=== PATIENT | male | born 1985 | race Caucasian/White ===

== ENCOUNTER 2017-05-19 19:15 | Observation (INO) | payer OTHER ==
[~2017-05-19] VITALS: Ht 182.9 cm; Wt 120.9 kg
[~2017-05-19 19:15] MED LIST: IBUPROFEN800 MG PO; NORCO 5-325 TA1 EACH PO; PERCOCET 7.5-31 EACH PO; VENTOLIN HFA18 GM INH
--- NOTE | 2017-05-19 23:30 | NUR ---
PT ARRIVED TO UNIT VIA STRETCHER FROM E.D. PT ALERT AND ORIENTED. INDEPENDENT WITH AMBULATION, STEADY ON FEET. HISTORY AND ADMISSION ASSESSMENTS COMPLETE. PT RATES EPIGASTRIC PAIN 7/10, DENIES ANY NEED FOR PAIN MEDICATION AT THIS TIME. PT DENIES ANY N/V AT THIS TIME. PT ON ROOM AIR. IV FLUIDS INITIATED PER MD ORDERS, IV SITE PATENT AND INTACT, FLUSHES WELL. AT BEDSIDE, GOING HOME FOR EVENING. EDUCATED ON VOIDING IN URINAL. EDUCATED SENIOR ECOLOGIST LIGHT, WITHIN REACH. EDUCATED ON NPO. PT DENIES ANY FURTHER NEEDS AT THIS TIME.
--- NOTE | 2017-05-20 03:30 | NUR ---
PT AWAKE PLAYING ON PHONE AND WATCHING TV. PT DENIES ANY NEED FOR PAIN MEDICATION. PT DENIES ANY N/V. IV FLUIDS INFUSING WITHOUT DIFFICULTY. CALL LIGHT WITHIN REACH. PT DENIES ANY FURTHER NEEDS AT THIS TIME.
--- NOTE | 2017-05-20 06:24 | NUR ---
CALLED DR YANEZ REGARDING LOW URINE OUTPUT AND LOW HR, NEW ORDERS RECEIVED FOR 1 LITER LR BOLUS.
--- NOTE | 2017-05-20 06:26 | NUR ---
PT HAD AN UNEVENTFUL NIGHT. DENIED ANY NEED FOR PAIN MEDICATION. DENIED ANY N/V. PT ON ROOM AIR. IV FLUIDS INFUSING WITHOUT DIFFICULTY. PT INDEPENDENT IN ROOM. LOW URINE OUTPUT, NOTIFIED, BOLUS GIVEN.
--- NOTE | 2017-05-20 07:42 | NUR ---
CALL TO IMAGING TO LET NUC MED KNOW THAT PATIENT HAS HIDA SCAN ORDERED.
--- NOTE | 2017-05-20 07:53 | NUR ---
MORNING ASSESSMENT DONE. PATIENT RESTING IN BED, DENIES PAIN OR NAUSEA AT THIS TIME. FAMILY IN ROOM WITH PATIENT. IVF CONTINUOUS. SCD'S ON BED.
--- NOTE | 2017-05-20 08:09 | NUR ---
PATIENT NOTIFIED THAT NUC MED HAS SCAN PLANNED FOR 4PM TODAY. PATIENT IS HOPING TO HAVE TEST EARLIER IN THE DAY. DR. YANEZ WILL BE NOTIFIED OF TIME.
[2017-05-20] MEDS ORDERED: ADVIL200 MG PO (08:59)
[2017-05-20] MEDS ORDERED: OMEPRAZOLE20 MG PO (09:09)
--- NOTE | 2017-05-20 09:10 | NUR ---
MED REC COMPLETE
--- NOTE | 2017-05-20 10:13 | NUR ---
PATIENT RESTING IN BED, DENIES PAIN OR NAUSEA, WOULD LIKE TO BE UNDISTURBED FOR A BIT TO SLEEP.
--- NOTE | 2017-05-20 11:54 | NUR ---
PT IN BED-ALERT AND ORIENTED. HE EXPRESSED MILD FRUSTRATION THAT HE IS IN PAIN AND STILL CAN'T PINPOINT THE PROBLEM. FRANNIE SCHEDULED FOR LATER TODAY. PT REQUESTED PRAYER. WILLL FOLLOW NEEDED
--- NOTE | 2017-05-20 13:49 | NUR ---
IVF CHANGED TO D5LR @ 85. PATIENT DENIES PAIN, RESTING IN BED. FAMILY IN ROOM WITH PATIENT.
--- NOTE | 2017-05-20 14:26 | NUR ---
PT REQUESTING PAIN MEDICATION FOR HEADACHE. CLARIFIED WITH PRIMARY NURSE THAT IT WAS OKAY TO GIVE TORADOL. MEDICATED PT WITH TORADOL
--- NOTE | 2017-05-20 16:10 | NUR ---
SPOKE WITH PATIENT IN ROOM. AND CHILDREN ALSO IN ROOM. PATIENT DENIES BARRIERS TO RETURNING HOME AT DISCHARGE. NO KNOWN NEEDS.
--- NOTE | 2017-05-20 16:13 | NUR ---
PATIENT SALINE LOCKED IN ANTICIPATION OF HIDA SCAN. PATIENT HAS VOIDED RECENTLY.
--- NOTE | 2017-05-20 16:58 | NUR ---
PATIENT HAS HAD UNEVENTFUL DAY, WAITING FOR 4PM HIDA SCAN. PATIENT HAS HAD ONE DOSE OF IV TORADOL TODAY FOR HEADACHE, OTHERWISE HAS DENIED PAIN. IVF IS D5LR @ 85. PATIENT IS AD MOHAN UP TO BATHROOM. FAMILY HAS BEEN ROOM THE ENTIRE DAY AND PATIENT HAS BEEN ABLE TO SLEEP.
--- NOTE | 2017-05-20 19:10 | NUR ---
RECEIVED REPORT FROM DAY SHIFT RN. PATIENT JUST ARRIVED BACK TO THE FLOOR FROM A HYDA SCAN. PATIENT RATES PAIN AT A 2/10. PATIENT IS ASKING ABOUT WHAT THE PLAN IS NOW. EDUCATED PATIENT THAT WE ARE WAITING FOR RESULTS OF SCAN AND THEN DR. YANEZ WILL PROVIDED ORDERS FROM THERE. PATIENT DENIES ANY NEEDS. FAMILY IN THE ROOM. CALL LIGHT IN REACH.
--- NOTE | 2017-05-20 20:07 | NUR ---
SPOKE WITH DR. YANEZ ABOUT RESULTS OF THE HYDA SCAN. DR. YANEZ WOULD LIKE THE TO OPERATE ON PATIENT IN THE AM. DR. YANEZ WOULD LIKE GALLBLADDER PACKET PROVIDED TO PATIENT, PATIENT ALLOWED CLEARS, AND NPO AT MIDNIGHT. WILL COMPLY WITH NEW ORDERS.
--- NOTE | 2017-05-20 20:57 | NUR ---
PATIENT ASSESMENT COMPLETED AND RECORDED. PATIENTS VITALS TAKEN AND RECORDED. PATIENTS EVENING MEDICATIONS GIVEN PER ORDER. PATIENT GIVEN GALLBLADDER HANDBOOK. ANSWERED ALL QUESTIONS. PATIENT EDUCATED THAT DR. YANEZ WOULD BE IN TOMMOROW TO TALK TO HIM. PATIENT IS NOW ON CLEARS AND GIVEN CHICKEN BROTH. PATIENT RATES PAIN AT A 3/10. PATIENT DENIES ANY NEEDS FOR PAIN MEDICATION. PATIENT DENIES ANY NAUSEA. PATIENT IS AAOX3. PATIENT IS INDEPENDENT IN THE ROOM. PATIENT WOULD NOT LIKE TO WEAR SCDS AT THIS TIME. SCDS ARE IN PLACE ON THE END OF THE BED FOR WHEN PATIENT IS READY TO PUT THEM ON. PATIENT DENIES ANY FURTHER NEEDS AT THIS TIME. PATIENTS FAMILY WILL BE STAYING WITH PATIENT. CALL LIGHT IN REACH.
--- NOTE | 2017-05-20 23:32 | NUR ---
PATIENT IS RESTING IN BED WITH EYES CLOSED, RR 17. PATIENTS FAMILY IS ASLEEP IN THE ROOM. CALL LIGHT IN REACH.
--- NOTE | 2017-05-21 01:03 | NUR ---
PATIENT IS RESTING IN BED WITH EYES CLOSED, RR 17. PATIENTS CALL LIGHT IS WITHIN REACH.
--- NOTE | 2017-05-21 02:25 | NUR ---
PATIENTS VITALS TAKEN AND RECORDED. PATIENT DENIES ANY PAIN OR NAUSEA. PATIENT DENIES ANY NEEDS AT THIS TIME. CALL LIGHT IN REACH.
--- NOTE | 2017-05-21 04:35 | NUR ---
PATIENT IS RESTING IN BED WITH EYES CLOSED, RR17. BREATHING IS EVEN AND UNLABORED. PATIENT IS POSITIONED ON HIS RIGHT SIDE. PATIENTS CALL LIGTH IS WITHIN REACH.
--- NOTE | 2017-05-21 05:26 | NUR ---
PATIENT RESTED WELL THROUGHOUT THE SHIFT. PATIENT DENIED THE NEED FOR ANY PAIN MEDICATION DURING THE SHIFT. PATIENT DENIED ANY NAUSEA. PATIENT HAS BEEN NPO SINCE MDINIGHT. PATIENT IS INDEPENDENT IN THE ROOM AND IS STEADY ON HER FEET. PATIENT HAS BEEN NPO SINCE MIDNIGHT. PATIENT REFUSED SCDS STATING "THEY MAKE ME TO HOT" PATIENT IS AAOX3 AND USES CALL LIGHT APPROPRIATELY. PATIENTS FAMILY REMAINS IN THE ROOM.
--- NOTE | 2017-05-21 05:47 | NUR ---
PATIENTS VITALS TAKEN AND RECORDED. PATIENTS INTAKE AND OUTPUT TAKEN AND RECORDED. PATIENT RATES PAIN AT A 2/10 AND DENIES THE NEED FOR PAIN MEDICATION. PATIENT DENIES ANY NAUSEA. PATIENT HAS BEEN NPO SINCE MIDNIGHT. PATIENT DENIES ANY FURTHER NEEDS. CALL LIGHT IS WITHIN REACH.
--- NOTE | 2017-05-21 07:35 | NUR ---
RECEIVED BEDSIDE REPORT FROM BRANDON HUI AT 0700. PT SLEEPING AT THIS TIME WITH FAMILY AT BEDSIDE. PLAN TO HAVE SURGERY TODAY. NPO NOW.
--- NOTE | 2017-05-21 09:49 | NUR ---
pt resting quietly in bed with at bedside. both watching television. no pain at this time.
--- NOTE | 2017-05-21 10:08 | NUR ---
PATIENT UP AMBULATING THE HALLWAY WITH HIS , SHOWER SET UP FOR THE PATIENT AT THIS TIME.
--- NOTE | 2017-05-21 10:16 | NUR ---
pt ambulated halls this morning for comfort. reported headache. toradol IV given.
--- NOTE | 2017-05-21 11:30 | NUR ---
PT RESTING IN BED, ALERT, ORIENTED AND SUPPORTED BY HIS . HE HAS A GOOD ATTITUDE, AND SEEMS VERY SUPPORTIVE. SEEMS PLAN IS TO DO LAP TONEY TOMORROW MORNING. HE IS HOPING TO BE DC'D TOMORROW AFTERNOON. HAD PRAYER WITH PT, WILL CONTINUE TO FOLLOW
--- NOTE | 2017-05-21 12:41 | NUR ---
pt off floor for CT. saline locked for procedure.
--- NOTE | 2017-05-21 13:05 | NUR ---
pt back from CT at 1300. IVF restarted. family at bedside.
--- NOTE | 2017-05-21 15:47 | NUR ---
05/21/17 1547 Sara Jackson 1543 PATIENT UNRESPONSIVE TO VERBAL OR TACTILE STIMULI. RESP EVEN AND UNLABORED, NC AT 6 LITERS, DECREASED TO 2 LITERS.
--- NOTE | 2017-05-21 16:26 | NUR ---
PT BACK IN ROOM 109. PT WIDE AWAKE. VSS. HUNGRY. WILL ORDER CLEAR LIQUID TRAY.
--- NOTE | 2017-05-21 17:46 | NUR ---
pt had CT scan of abd this morning. more or less benign-- small kidney stone seen. EGD this afternoon. no results yet. plan to have yamel tomorrow 729. need consent signed. Room air. D5LR @ 85 infusing into RAC. Redressed IV. Independent in room. Clear liquids now. NPO at midnight.
--- NOTE | 2017-05-21 19:15 | NUR ---
RECEIVED REPORT FROM DAY SHIFT RN. PATIENT IS RESTING IN BED WATCHING TV AND VISITING WITH FAMILY. PATIENT DENIES ANY PAIN OR NAUSEA AT THIS TIME. PATIENT DENIES ANY NEEDS. CALL LIGHT IN REACH.
--- NOTE | 2017-05-21 20:55 | NUR ---
PATIENT ASSESMENT COMPLETED. PATIENTS EVENING MEDICATIONS GIVEN PER ORDER. PATIENT RATES PAIN AT A 3/10 AND DENIES THE NEED FOR PAIN MEDICATION AT THIS TIME. PATIENT DOES COMPLAIN OF NAUSEA. SPOKE WITH DR YANEZ AND RECEIVED A VERBAL ORDER FOR NAUSEA MEDICATION. VERIFIED NEW ORDER USING THE READBACK METHOD. PATIENT IS REQUESTING NAUSEA MEDICATION ONCE AVAILABLE. PATIENT IS INDEOENDENT IN THE ROOM AND IS STEADY ON HIS FEET. PATIENTS FAMILY REMAINS AT THE BEDSIDE. PATIENT DENIES ANY FURTHER NEEDS AT THIS TIME. CALL LIGHT IN REACH.
--- NOTE | 2017-05-21 21:21 | NUR ---
PATIENT GIVEN PRN ZOFRAN PER ORDER. PATIENT DENIES ANY FURTHER NEEDS AT THIS TIME. CALL LIGHT IN REACH.
--- NOTE | 2017-05-21 21:51 | NUR ---
PATIENT AMBULATED IN HALLWAY X3 LAPS. PATIENT IS STEADY ON HIS FEET. PATIENT DENIES PAIN. PATIENT STATED "MY STOMACH IS FEELING BETTER AFTER THE NAUSEA MEDICATION". PATIENT IS NOW BACK IN ROOM VISSITING WITH FAMILY.
--- NOTE | 2017-05-21 23:31 | NUR ---
PATIENT IS RESTING IN BED WITH EYES CLSOED. BREATHING EVEN AND UNLBAORED. PATIENTS FAMILY IS ASLEEP IN THE COUCH. CALL LIGHT IN REACH.
--- NOTE | 2017-05-22 00:26 | NUR ---
PATIENTS URINAL EMPTIED PER REQUEST. PATIENT RATES PAIN AT A 1/10 AND DENIES THE NEED FOR PAIN MEDICATION. PATIENT DENIES ANY NAUSEA. CALL LIGHT IN REACH.
--- NOTE | 2017-05-22 02:24 | NUR ---
PATIENT IS RESTING IN BED WITH EYES CLOSED, RR17.
--- NOTE | 2017-05-22 04:28 | NUR ---
PATIENT CONTINUES TO REST IN BED ON HIS RIGHT SIDE. PATIENTS BREATHING IS EVEN AND UNLABORED, RR 17
--- NOTE | 2017-05-22 05:18 | NUR ---
PATIENT RESTED WELL THROUGHOUT THE SHIFT. PATIENT DENIE ANY PAIN. PATIENT RECEIVED X1 PRN NAUSEA MEDICATION. PATIENT HAD MULTIPLE LOOSE BMS. PATIENT HAS BEEN NPO SINCE MIDNIGHT. PATIENT IS INDEPENDENT IN THE ROOM AND IS STEADY ON HIS FEET. PATIENTS SURGERY PREP FOR THIS AM IS COMPLETED. PATIENT IS AAO X3. PATIENT USES CALL LIGHT APPROPRIATELY. PATIENT REFUSES SCDS.
--- NOTE | 2017-05-22 06:08 | NUR ---
PATIENT WIPE DOWN COMPLETED. LR WITH STRAIGHT TUBING IS HUNG. ALL PATIENTS QUESTIONS ANSWERED. PATIENT DENIES ANY PAIN OR NAUSEA. PATIENT DENIES ANY FURTHER NEEDS AT THIS TIME. CALL LIGHT IN REACH.
--- NOTE | 2017-05-22 06:38 | NUR ---
DAY SURGERY RN TO FLOOR. PATIENT TRANSFERRED TO STRETCHER ON IS OWN. PATIENT IS HEADED TRO DAY SURGERY. HAND OFF REPORT GIVEN TO DAY SURGERY RN. ALL QUESTIONS ANSWERED.
--- NOTE | 2017-05-22 07:12 | NUR ---
HANDOFF REPORT RECEIVED FROM BACK TENDER PAPER MACHINE RN. PT AT OR.
--- NOTE | 2017-05-22 09:07 | NUR ---
05/22/17 0907 PatriceDax spaulding SAT 100, O2 DECREASED TO 6L.
[2017-05-22] MEDS ORDERED: OXYCODON-ACETA1 EAC2 PO (09:18)
--- NOTE | 2017-05-22 09:45 | NUR ---
PT RECEIVED FROM PACU, BEDSIDE REPORT RECEIVED FROM RN. PT RESTING IN BED. PT RATING PAIN 6/10. PT LUNG SOUNDS CLEAR, ON ROOM AIR. PT BOWLT TONES ABSENT. LAP SITES X5, GAUZE TO UMBILICUS SITE, STERISTRIPS INPLACE. PT REQUESTING TO USE RESTROOM, ASSISTED. PT COMPLAINT OF NAUSEA, 4MG IV ZOFRAN GIVEN, 50 ML EMESIS. PT ASSISTED TO BED. PT ENCOURAGED TO REST, CLEAR LIQUIDS PROVIDED, DIRECTED TO SIP SLOWLY. PT DENIES OTHER NEEDS AT THIS TIME.
--- NOTE | 2017-05-22 11:00 | NUR ---
PT RESTIN IN BED. PT STATES NAUSEA IMPROVED. TOLERATING CLEAR LIQUID DIET. PT VOIDED. IV FLUIDS INFUSING. PT DENIES NEEDS AT THIS TIME.
--- NOTE | 2017-05-22 12:14 | NUR ---
PT REQUESTING PAIN MEDICATION. PT TOLERATING CLEAR LIQUIDS AND CRACKERS. PT GIVEN 2 TAB PERCOCET. PT DENIES NAUSEA AT THIS TIME. PT VOIDING. PT DENIES NEEDS.
--- NOTE | 2017-05-22 13:27 | NUR ---
PT CB ZIEGLER THIS MORNING. BACK IN . SEEMS THANKFUL IT IS OVER. AND DAUGHTERS IN , PT HOPES TO BE DC'D LATER TODAY. BOTH EXPRESSED APPRECIATION FOR CARE THEY HAVE RECEIVED FORM STAFF AND DR YANEZ. PT ASKED FOR PRAYER.
--- NOTE | 2017-05-23 10:32 | OR ---
[facility] [address], [place] [address] Signed DATE OF SERVICE: 05/22/2017 PREOPERATIVE DIAGNOSIS: Acute acalculous cholecystitis. POSTOPERATIVE DIAGNOSES: Acute acalculous cholecystitis. Profound cholesterolosis of mucosa of gallbladder with normal cholangiogram. PROCEDURES: Laparoscopic cholecystectomy with intraoperative cholangiogram. Surgeon directed fluoroscopy. SURGEON: Ed Yanez MD. ANESTHESIA: General endotracheal (Nalini Morocho CRNA) and local 20 mL of 0.25% Marcaine with epinephrine. INDICATION: This 31-year-old white man is a patient of CYRUS Bailey. He was admitted by me on May 19, 2017, with significant epigastric right upper abdominal pain as well as weight loss and episodic night sweats and worsening of these symptoms over the past few months. In July of 2016, he underwent colonoscopy and upper endoscopy by Dr. Driscoll in [place] for these symptoms. He was said to have peptic disease and diverticular changes of the colon. 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 He was admitted and considered to possibly have biliary disease and underwent a CCK-HIDA test and ultrasound both of which were normal with an ejection fraction on the CCK test of 75%. Since that time, he has been on omeprazole, but with no benefit whatsoever to his symptoms. His symptoms have progressed into his recent admission where he was noted to have significant weight loss of 20 pounds over the past month and a half as well as epigastric and right subcostal pain. He is unable to eat well at all due to his symptoms and on that basis weight loss was considered related to poor oral intake overall. An ultrasound performed in the emergency room on May 19 showed no sign of gallstones. A CCK-HIDA test was performed the following day showing an ejection fraction of 35% with marked reproduction of his symptoms. Mindful of other etiologies of his problem, a CT scan was performed , which was normal except for left nephrolithiasis (asymptomatic and Electronically Signed By: ED YANEZ MD 05/23/17 1032 PATIENT NAME: RICKY BEGUM OPERATIVE REPORT DATE OF : 81 PHYSICIAN: ED YANEZ MD REPORT #: [id number] REPORT IS CONFIDENTIAL AND NOT TO BE RELEASED WITHOUT AUTHORIZATION [facility] [address], [place] [address] Signed without hydroureter) as well as upper endoscopy by me, which showed no evidence of peptic disease, though, it did show a small mid esophageal polyp, which was excised. Given his constellation of symptoms, the recent CCK-HIDA test and so forth, I have recommended cholecystectomy as the remedy to what I believe to be chronic persistent and now acute acalculous cholecystitis. He and his understand the risks of bleeding, infection, bile d uct injury, need for open procedure, and other unforeseen complications related to operation, not the least of which may be no improvement of his symptoms overall. He understands this and wished to proceed. FINDINGS: The gallbladder was chronically inflamed. Cholesterolosis could be seen through transillumination of the gallbladder and once the gallbladder was excised, profound cholesterolosis of the gallbladder was noted. The cholangiogram was normal. The liver had fatty infiltration, but otherwise was norm al. There is no sign of ascites or carcinomatosis or other problems. PROCEDURE IN DETAIL: The patient was brought to the operating room, given a general endotracheal anesthetic. Preoperative antibiotic Ancef was given. Sequential compression device stockings were used and heparin subcutaneously administered. The abdomen was clipped and prepared with chlorhexidine solution and draped sterilely. Infraumbilical incision was made and using an open Jyothi cannula technique, pneumoperitoneum was achieved at level 1 4 mmHg of carbon dioxide gas. Intraabdominal inspection showed the gallbladder to be obscured by omental fat. Three additional trocars were placed in usual configuration in the subxiphoid, right midclavicular, and right anterior axillary line. The gallbladder was elevated cephalad and due to obesity and omental fat, an additional trocar was placed allowing for placement of a fan retractor for exposure. The infundibulum of gallbladder was grasped and retracted laterally and using blunt and electrocautery dissection, the fatty peritoneum overlying the triangle of Calot was dissected free ultimately identifying well the cystic duct and cystic artery. A clip was applied across gallbladder cystic duct junction and a transverse choledochotomy made in the cystic duct. An Pelayo type cholangiocatheter was placed into the cystic duct and intraoperative cholangiography was undertaken with surgeon directed fluoroscopy. This showed free flow of contrast in biliary tree with prompt emptying into the duodenum. The cystic duct was quite long actually. The catheter was removed and the cystic duct was triply clipped and divided and the gallbladder was dissected free in a retrograde fashion using electrocautery. The gallbladder has sustained a leak draining dark bile, which w a s suctioned free. There was no spillage of stones. The gallbladder was placed in an endobag and extracted through the infraumbilical port site without problem. Opened on the back table and found to have profound cholesterolosis. Irrigation was undertaken with subhepatic space. There was no sign of bile leak, bleeding, or other problems. The Electronically Signed By: ED YANEZ MD 05/23/17 1032 PATIENT NAME: RICKY BEGUM OPERATIVE REPORT DATE OF : 81 PHYSICIAN: ED YANEZ MD REPORT #: [id number] REPORT IS CONFIDENTIAL AND NOT TO BE RELEASED WITHOUT AUTHORIZATION [facility] [address], [place] [address] Signed excess irrigation fluid was suctioned free. The trocars were removed under direct visualization. A right-sided 5-mm trocar site appeared to have some oozing and therefo re electrocautery was applied to that with good effect. Attention was turned toward closure. The infraumbilical fascial incision was reapproximated with interrupted 0 Vicryl suture. All wounds were copiously irrigated with saline solution and injected with 0.25% Marcaine with epinephrine 20 mL in total was used. The skin was closed with interrupted 3-0 Vicryl. Steri-Strips were applied. The patient was ultimately extubated and transferred to recovery in good condition having suffered no complication. Sponge, needle, and instrument counts reported as correct x3. MD GERA West/Diann /[id number] cc: CYRUS Truong Dr. Electronically Signed By: ED YANEZ MD 05/23/17 1032 PATIENT NAME: RICKY BEGUM OPERATIVE REPORT DATE OF : 81 PHYSICIAN: ED YANEZ MD REPORT #: [id number] REPORT IS CONFIDENTIAL AND NOT TO BE RELEASED WITHOUT AUTHORIZATION
--- NOTE | 2017-05-23 10:32 | OR ---
[facility] [address] [place] [address] Signed DATE OF SERVICE: 05/21/2017 PREOPERATIVE DIAGNOSES: Weight loss, epigastric pain, and night sweats. Normal ultrasound and CT scan of abdomen. CCK-HIDA test, 35% ejection fraction with reproduction of symptoms. POSTOPERATIVE DIAGNOSIS: Normal upper endoscopy except for mucosal lesion at 25 cm from the incisors (excised). PROCEDURE: Esophagogastroduodenoscopy with biopsy. SURGEON: Ed Yanez MD. ANESTHESIA: Intravenous sedation, propofol infusion (Ed Ayala CRNA). INDICATION: This 31-year- old, obese man has lost 20 pounds over the past 2 months related to poor oral intake. He has abdominal pain mostly in the epigastric and subcostal area. The previous biliary workups in the past have been negative. He was recently seen through the emergenc y room on May 19, [address] Maria including ultrasound, which again showed no sign of stones. He has undergone a CCK-HIDA test yesterday (actually fat stimulated HIDA scan), which showed an ejection fraction of 35% with reproduction of his s ymptoms. He additionally has had night sweats and his symptoms are ambiguous enough that a CT scan was performed of the abdomen, which was normal. An upper endoscopy is anticipated at this time to assess for peptic disease. It is notably that he underwent upper endoscopy in July of [address]iscoll in [place], also including colonoscopy, which did show according to patient 2 ulcers of the stomach. He has been on PPI medication since that time, but it has no beneficial effect on his current symptoms. Plans were made for cholecystectomy today, however, given the ambiguity of his symptoms, an upper endoscopy, and CT scan were performed in anticipation of possible cholecystectomy. He understands risks of bleeding, infection, and perforation related upper endoscopy and wished to proceed. FINDINGS: The stomach, duodenal, and esophagus were normal except for a somewhat flattened papillary lesion of the mid esophagus at 25 cm, this was excised completely. Electronically Signed By: ED YANEZ MD 05/23/17 1032 PATIENT NAME: RICKY BEGUM OPERATIVE REPORT DATE OF : 81 PHYSICIAN: ED YANEZ MD REPORT #: [id number] REPORT IS CONFIDENTIAL AND NOT TO BE RELEASED WITHOUT AUTHORIZATION [facility] [address], [place] [address] Signed PROCEDURE IN DETAIL: The patient brought to the endoscopy suite and placed in lateral decubitus position and bite block was placed. Intravenous sedation induced by the operator engineer with propofol infusion with full cardiopulmonary monitoring. The Olympus video upper endoscope was passed by hypopharynx, vocal cor ds were normal. The scope was passed into the esophagus and its initial appearance appeared normal. Scope was passed into the stomach, which was insufflated with air. There is no sign of ulceration, blood, and rugal folds appeared normal. The antrum appea r ed reasonably normal as did the pylorus. Scope was passed through into the duodenum, which was normal. Biopsies were taken of the duodenum to assess for celiac disease. Careful inspection of bulbar portion showed no ulcer. Scope was withdrawn to the stoma c h and antral biopsies were performed as well as proximal stomach biopsies for CLOtest. Retroflexed view showed an uncertain flap valve as to its competency, but no obviously large hiatal hernia. Scope was withdrawn to the distal esophagus. Mucosa appeared normal. Careful withdrawal of scope, identified a papillary mucosal lesion at 25 cm from the incisors. This was excised with cold morcellation technique. It measured approximately 8 mm. Re-evaluation showed no sign of other abnormality. Scope was withdraw n and removed and the patient was taken to recovery room in good condition. CONCLUDING DIAGNOSIS: Symptoms overall are more likely related to biliary disease than anything else at this point. PLAN: We will plan for cholecystectomy tomorrow. We will get a chest x-ray today to be ascertained there was no evidence of mediastinal adenopathy accounting for his night sweats. MD GERA West/Diann /[id number] cc: Dr. Maria Electronically Signed By: ED YANEZ MD 05/23/17 1032 PATIENT NAME: RICKY BEGUM OPERATIVE REPORT DATE OF : 81 PHYSICIAN: ED YANEZ MD REPORT #: [id number] REPORT IS CONFIDENTIAL AND NOT TO BE RELEASED WITHOUT AUTHORIZATION
--- NOTE | 2017-05-23 10:32 | HP ---
[facility] [address] [facility] [place], [place] [address] Signed ADMIT DATE: 05/19/2017 REASON FOR ADMISSION: This 31-year-old white man presented to the emergency room at approximately 7:30 p.m. and evaluated in detail by Dr. Maria. The patient has had persistent right upper abdominal pain for more than a year worsening recently. The patient also notes regurgitation and substernal and epigastric burning pain after eating. He has lost at least 20 pounds over the past month or so due to poor oral intake. He does not really have dysphagia upon swallowing. He had no hematemesis. He has undergone biliary workup in the past including gallbladder ultrasound and CCK with a HIDA scan, which were said to be normal. Notably, he had upper endoscopy and colonoscopy in July of [address]iscoll in [place]. He recounts that she had seen ulcers in the stomach at that time. The patient has been taking omeprazole with really no discernible benefit since that time. I first met the patient, on August 12, 2016, as an emergency room consul t as he had complaints of abdominal pain and colonoscopy by Dr. Driscoll in [place]. He was considered possible to have a post polypectomy syndrome, an inflammatory change which is of the colon without free perforation. He was noted to have diverticula but no evidence of acute diverticulitis. I had concerns that he had biliary symptoms at that time and on August 13, 2016, he underwent a CCK HIDA test, which showed a normal scan. Good visualization of the gallbladder and ejection fraction of 75%. He was th ought to have no symptoms elicited by injection of CCK at that time. Since that time, he has been struggling with right subcostal and epigastric pain despite taking omeprazole. He has no family history of biliary disease that he is aware of. 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 He is accompanied by his and 2 young children. REVIEW OF SYSTEMS: He denies any precordial chest pain or left arm pain or jaw pain. He does not have nausea necessarily. His symptoms are occurring after eating an oral intake but not associated with dysphagia or hematemesis or blood per rectum. His weight loss is 20 pounds over the past month and a half or so. He does not eat much food; much of it is regurgitated. He does not have back pain associated with this. PHYSICAL EXAMINATION: GENERAL: A large white man who does not look systemically toxic. Mucous membranes are Electronically Signed By: ED YANEZ MD 05/23/17 1032 PATIENT NAME: RICKY BEGUM HISTORY AND PHYSICAL DATE OF : 81 PHYSICIAN: ED YANEZ MD REPORT #: [id number] REPORT IS CONFIDENTIAL AND NOT TO BE RELEASED WITHOUT AUTHORIZATION [address] [address] Signed moist. Trachea is midline. CHEST: Clear. HEART: Regular without murmur. ABDOMEN: Somewhat obese but soft. Palpation reveals no focal mass or tenderness. I detect no ascites. EXTREMITIES: Show no clubbing, cyanosis, or edema. LABORATORY DATA: Lab studies including a CBC and a chem profile are all normal with a white count of 7.0, hematocrit of 44.5, platelets 210,000. Chem profile showing a potassium of 3.5, glucose of 108, liver enzymes normal. Lipase normal at 39 and urinalysis normal. I have reviewed his gallbladder ultrasound which to me looks quite abnormal but is interpreted as normal. There are no stones that I see but it appears to me that the gallbladder is thickened, although I will have to review that with the radiologist myself. Review of his CT scan that was performed last fall showed a contracted gallbladder at that time and no sign of intraabdominal abnormalities. Upon additional questioning, the patient does seem to have night sweats quite profoundly. Since we were locally having record high temperatures, the significance of this is uncertain and may represent only manifestations of ambient temperature actually. At this point, I have organized for him to have a CCK HIDA test. It will be performed at approximately 4 p.m. If this is normal, I would recommend upper endoscopy. If that is normal, repeat CT scan. He may have biliary disease despite a normal ultrasound and CCK HIDA test, but given his presumably accurate diagnosis of ulcers of the stomach from endoscopy over year ago and nonresponse to omeprazole, clinically consideration for a gastric process including gastric lymphoma or ulceration or other neoplasm must be considered as well. We discussed this in detail. MD GERA West/Diann /[id number] Electronically Signed By: ED YANEZ MD 05/23/17 1032 PATIENT NAME: RICKY BEGUM HISTORY AND PHYSICAL DATE OF : 81 PHYSICIAN: ED YANEZ MD REPORT #: [id number] REPORT IS CONFIDENTIAL AND NOT TO BE RELEASED WITHOUT AUTHORIZATION [facility] [address] [facility] [place], [place] [address] Signed cc: CYRUS Truong Dr. Electronically Signed By: ED YANEZ MD 05/23/17 1032 PATIENT NAME: RICKY BEGUM HISTORY AND PHYSICAL DATE OF : [birth year] PHYSICIAN: ED YANEZ MD REPORT #: [id number] REPORT IS CONFIDENTIAL AND NOT TO BE RELEASED WITHOUT AUTHORIZATION
--- NOTE | 2017-07-11 10:36 | DS ---
[facility] [address] [place], [place] [address] Signed DATE OF DISCHARGE: 05/22/17 REASON FOR ADMISSION This 30-year-old white man presented to the emergency room at approximately 7:30 p.m. and was evaluated by Dr. Maria in detail. He has had persistent right upper abdominal pain for more than a year, worsening recently. The patient has also had regurgitation and substernal and epigastric pain after eating. He has lost at least 20 pounds over the past month due to poor oral intake. He does not have dysphagia and no hematemesis. He has undergone biliary workup in the past, including gallbladder ultrasound and CCK HIDA scan, which were said to be normal. Notably, he had an upper endoscopy and colonoscopy in July [address]iscoll in [place]. He said that he was told that he had ulcers in the stomach at that time. The patient has been taking Omeprazole with no discernible benefit since that time. It is notable that I had met him initially on August 12, 2016 in the emergency room consult setting with complaints of upper abdominal pain following colonoscopy by Dr. Driscoll in [place] earlier that day. 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 On his concerns that he had biliary symptoms at that time, on August 13, 2016, he underwent the CCK HIDA test, which was normal, with good visualization of gallbladder and ejection fraction of 75%, but no symptoms elicited by CCK at that time. He is admitted for further evaluation and care. PERTINENT PHYSICAL EXAM GENERAL: A large white man who does not look systemically toxic. HEENT: Mucous membranes were moist. Trachea is midline. CHEST: Clear. HEART: Regular, without murmur. ABDOMEN: Obese, but soft. Palpation reveals no focal mass or tenderness. EXTREMITIES: Show no clubbing, cyanosis, or edema. LABORATORY DATA White count was noted to be 7.0, hematocrit 44.5, platelets 210,000. Chem profile showed normal liver enzymes, and lipase was normal. Urinalysis was normal. A gallbladder ultrasound was reviewed which looked abnormal as the gallbladder wall was thickened, though interpretation was that it was normal. His CT scan report was reviewed from last fall showing a contracted gallbladder at that time. HOSPITAL COURSE Given his persistent symptoms which were highly suggestive of biliary disease, he was given a CCK HIDA test. A CCK HIDA test was performed on May 20 and actually used Electronically Signed By: ED YANEZ MD 07/11/17 1036 PATIENT NAME: RICKY BEGUM DISCHARGE SUMMARY DATE OF : 81 PHYSICIAN: ED YANEZ MD REPORT #: [id number] REPORT IS CONFIDENTIAL AND NOT TO BE RELEASED WITHOUT AUTHORIZATION [facility] [address] [place], [place] [address] Signed fatty meal instead of CCK due to local shortages. There is no evidence of common cystic duct obstruction. The gallbladder ejection fraction was normal at 36%, normal considered 33% or more. He did have worsening of his abdominal pain symptoms. On the basis of these findings and his clinical situation, he was deemed most likely to have, in fact, acalculous cholecystitis. Recommendation was made for consideration of cholecystectomy for acalculous cholecystitis. On May 21, 2017, he underwent upper endoscopy to ascertain that there was no evidence of ulceration as had been presumed from endoscopy several months ago. This was normal except for an inflammatory lesion at 25 cm from the incisors in the esophagus which was papillary in appearance and excised completely. On May 22, 2017, he underwent laparoscopic cholecystectomy with intraoperative cholangiogram. He was found to have a gallbladder that had chronic inflammation. Cholesterolosis of a profound degree was noted in the gallbladder mucosa. Cholangiogram was normal. The liver had fatty infiltration, but was otherwise normal. The patient had improvement of his symptoms quite markedly and was able to tolerate oral intake quite well. By evening, he strongly desired to be discharged to home. He was discharged to home in good condition. He was discharged home with pain medication Percocet 7.5/325 one to two p.o. q.4 hours p.r.n. pain, #20; ultimately consider Motrin 600 mg p.o. q.6 hours p.r.n. pain, #30, or Tylenol 650 mg p.o. q.6 hours p.r.n. pain, #60. FOLLOWUP PLANS He is return to see me in approximately a month. Should he have problems in the meantime, he will let me know. He is permitted to take whatever oral intake he tolerates well. DISCHARGE DIAGNOSES Acute acalculous cholecystitis with profound cholesterolosis and normal cholangiogram, status post laparoscopic cholecystectomy with intraoperative cholangiogram, May 22, 2017. Upper endoscopy showing small benign appearing papillary lesion of the esophagus at 25 cm from incisors. Obesity. Chronic persistent right upper abdominal pain. Distant history of normal colonoscopy in in 2016 (Dr. Driscoll) and possible small ulcers of stomac h, 2015 (also Dr. Driscoll). Electronically Signed By: ED YANEZ MD 07/11/17 1036 PATIENT NAME: RICKY BEGUM DISCHARGE SUMMARY DATE OF : 81 PHYSICIAN: ED YANEZ MD REPORT #: [id number] REPORT IS CONFIDENTIAL AND NOT TO BE RELEASED WITHOUT AUTHORIZATION [address] [place], [place] [address] Signed MD GERA West/Diann /[id number] cc: CYRUS Truong Electronically Signed By: ED YANEZ MD 07/11/17 1036 PATIENT NAME: RICKY BEGUM DISCHARGE SUMMARY DATE OF : [birth year] PHYSICIAN: ED YANEZ MD REPORT #: [id number] REPORT IS CONFIDENTIAL AND NOT TO BE RELEASED WITHOUT AUTHORIZATION
== END 2017-05-22 15:25 | disposition home or self-care (01) ==
LOC: ED 19:15 → MS 19:17
PROVIDERS: ADMIT Surgery
PROC: 0DB68ZX Excision of Stomach, Via Natural or Artificial Opening Endoscopic, Diagnostic (ICD-10-PCS; 2017-05-21)
PROC: BF101ZZ Fluoroscopy of Bile Ducts using Low Osmolar Contrast (ICD-10-PCS; 2017-05-22)
PROC: 0FT44ZZ Resection of Gallbladder, Percutaneous Endoscopic Approach (ICD-10-PCS; principal; 2017-05-22 06:45)
DX: K81.2 Acute cholecystitis with chronic cholecystitis (principal); K21.9 Gastro-esophageal reflux disease without esophagitis; K29.50 Unspecified chronic gastritis without bleeding; D13.0 Benign neoplasm of esophagus; K76.0 Fatty (change of) liver, not elsewhere classified; N20.0 Calculus of kidney; E66.9 Obesity, unspecified; Z68.36 Body mass index [BMI] 36.0-36.9, adult; Z79.899 Other long term (current) drug therapy; Z87.891 Personal history of nicotine dependence
CPT/HCPCS: 00740; 00790; 71010; 74177; 74300; 76705; 78227; 80053; 81001; 83690; 85025; 96361; 96374; 96375; 96376; 99285; A9537; G0378; J0330; J0690; J1100; J1170; J1885; J2250; J2405; J2704; J2710; J2765; J3010; J7120; Q9967

== ENCOUNTER 2017-07-27 21:19 | Emergency (ER) | payer OTHER ==
[~2017-07-27] VITALS: Ht 182.9 cm; Wt 119.3 kg
[~2017-07-27 21:19] MED LIST changes: +ADVIL200 MG PO; +OMEPRAZOLE20 MG PO; +OXYCODON-ACETA1 EAC2 PO
[2017-07-27] MEDS ORDERED: BENADRYL25 MG PO (21:37)
[2017-07-27] MEDS ORDERED: VITAMIN C500 M1 PO (21:38)
== END 2017-07-27 23:35 | disposition home or self-care (01) ==
LOC: ED 21:19
DX: J06.9 Acute upper respiratory infection, unspecified (principal); K21.9 Gastro-esophageal reflux disease without esophagitis; Z87.891 Personal history of nicotine dependence; Z79.899 Other long term (current) drug therapy
CPT/HCPCS: 71020; 87081; 87880; 99283

== ENCOUNTER → 2017-10-06 | Emergency (ER) | payer OTHER ==
[~2017-10-06] VITALS: Ht 182.9 cm; Wt 117.9 kg
[~2017-10-06] MED LIST changes: +BENADRYL25 MG PO; +VITAMIN C500 M1 PO
--- NOTE | 2017-10-06 13:17 | EKG ---
[facility] [address] [facility] [place] [address] Signed Sinus bradycardia Otherwise normal ECG No previous ECGs available Confirmed by NELDA AREVALO MD ([id number]) on 10/06/2017 1:17:18 PM Electronically Signed By: NELDA AREVALO MD 10/06/17 1317 PATIENT NAME: SHYRICKY TREASURE Electrocardiogram DATE OF : 81 PHYSICIAN: NELDA AREVALO MD REPORT #: [id number] REPORT IS CONFIDENTIAL AND NOT TO BE RELEASED WITHOUT AUTHORIZATION
== END ==
LOC: ED 01:51
DX: R00.1 Bradycardia, unspecified (principal); R07.89 Other chest pain; Z87.891 Personal history of nicotine dependence
CPT/HCPCS: 93005; 93010; 99284

== ENCOUNTER 2017-11-14 18:33 | Emergency (ER) | payer OTHER ==
[~2017-11-14] VITALS: Ht 182.9 cm; Wt 122.5 kg
[2017-11-14] MEDS ORDERED: IBUPROFEN200 M1 PO (19:09)
[2017-11-14] MEDS ORDERED: NORCO 5-325 TA1 EACH PO (21:43)
[2017-11-14] MEDS ORDERED: ZOFRAN ODT4 MG PO (21:43)
== END 2017-11-14 22:05 | disposition home or self-care (01) ==
LOC: ED 18:33
DX: N23 Unspecified renal colic (principal)
CPT/HCPCS: 74176; 80053; 81001; 85025; 96374; 96375; 99284; J1885; J2405

== ENCOUNTER 2018-04-14 19:52 | Emergency (ER) | payer OTHER ==
[~2018-04-14] VITALS: Ht 182.9 cm; Wt 127.3 kg
[~2018-04-14 19:52] MED LIST changes: +IBUPROFEN200 M1 PO; +ZOFRAN ODT4 MG PO
== END 2018-04-14 20:21 | disposition left against medical advice (07) ==
LOC: ED 19:52
DX: Z53.21 Procedure and treatment not carried out due to patient leaving prior to being seen by health care provider (principal)

== ENCOUNTER 2018-06-17 09:19 | Emergency (ER) | payer OTHER ==
[~2018-06-17] VITALS: Ht 182.9 cm; Wt 127.3 kg
[2018-06-17] MEDS ORDERED: AUGMENTIN 875-1 EACH PO (09:29)
[2018-06-17] MEDS ORDERED: TESSALON PERLE100 MG PO (09:30)
[2018-06-17] MEDS ORDERED: MEDROL4 MG PO (09:43)
[2018-06-17] MEDS ORDERED: FLONASE ALLERG9.9 ML NAS (09:43)
[2018-06-17] MEDS ORDERED: G TUSSIN AC LI473 ML PO (09:43)
== END 2018-06-17 10:26 | disposition home or self-care (01) ==
LOC: ED 09:19
DX: J01.90 Acute sinusitis, unspecified (principal)
CPT/HCPCS: 99283

== ENCOUNTER 2018-11-17 05:45 | Day surgery (SDC) | payer OTHER ==
[~2018-11-17] VITALS: Ht 180.3 cm; Wt 130.2 kg
[~2018-11-17 05:45] MED LIST changes: +AUGMENTIN 875-1 EACH PO; +FLONASE ALLERG9.9 ML NAS; +G TUSSIN AC LI473 ML PO; +MEDROL4 MG PO; +TESSALON PERLE100 MG PO
[2018-11-17] MEDS ORDERED: SENNA LAX8.6 MG PO (09:45)
[2018-11-17] MEDS ORDERED: NEURONTIN300 MG PO (09:45)
[2018-11-17] MEDS ORDERED: HYDROCODON-ACE1 EA11 PO (09:45)
--- NOTE | 2018-11-17 09:46 | NUR ---
11/17/18 0946 Sheets,Me[place] 0936 PT ARRIVED TO PACU ON 8L VIA MASK, PT REACTIVE TO VERBAL STIMULI AND DENIES PAIN. RESP EVEN AND UNLABORED. 0943 O2 MASK REMOVED, PT TALKING TO RN. PT DENIES NAUSEA AND PAIN.
--- NOTE | 2018-11-17 10:14 | NUR ---
ICED WATER AND JEHOANGO GIVEN. CALL LIGHT W/IN REACH. SPOUSE @ BS.
--- NOTE | 2018-11-17 10:42 | NUR ---
PT ALERT, ORIENTED AND SUPPORTED BY HIS LAWRENCE. PT SEEMS AT EASE, LAWRENCE IS SOMEWHAT ANXIOUS. THEIR FAMILY HAS HAD MORE THAN THEIR SHARE OF HEALTH ISSUES LATELY. PRAYED WITH BOTH, WILL CLOSELY WATCH TODAY. WILL FOLLOW NEEDED
--- NOTE | 2018-11-17 12:25 | NUR ---
LE 1115: PATIENT ASSISTED DRESSED BY THIS RN AND SPOUSE. PATIENT AMBULATES TO THE BATHROOM AND TOLERATES THAT WELL. PATIENT REQUESTS DC HOME. DC INSTRUCTIONS GIVEN AND HE VERBALIZES UNDERSTANDING. PATIENT TRANSFERS HIMSELF TO THE AND TOLERATES THAT WELL.
--- NOTE | 2018-11-22 08:12 | OR ---
[facility] [address] [facility] [place] [facility] [place] [address] Signed DATE OF OPERATION: 11/17/2018 SURGEON: Bakari Heath MD PREOPERATIVE DIAGNOSIS: Superior labral tear from anterior to posterior, right shoulder. POSTOPERATIVE DIAGNOSIS: Superior labral tear from anterior to posterior, right shoulder. PROCEDURE PERFORMED: Right shoulder arthroscopy with SLAP repair. RADIOLOGY TECH: None. TOURNIQUET TIME: Zero. ANESTHESIA: General with interscalene block. BLOOD LOSS: Minimal. IMPLANTS: Three 2.9 PushLocks. BRIEF HISTORY: Darius is a 33-year-old gentleman with a shoulder injury and severe pain. MRI was consistent with a large SLAP tear. Risks and benefits of operative treatment discussed with him and he elected to proceed. Once consent was obtained, he was taken to the operating room. After adequate anesthesia, he was placed on operating table. All downside pressure points well padded. He was placed in beach chair position. The shoulder was prepped and draped in a standard sterile fashion. The shoulder was injected with 15 mL 0.25% Marcaine with epinephrine as was the subacromial space. Standard posterior portal was established. The scope was introduced in the shoulder. Arthroscopic findings, there was moderate synovitis anteriorly. It is of note that he appeared to be subluxed or dislocated in the preop holding area after the block was placed. I do not think he was fully dislocated; however, it was showing some Electronically Signed By: BAKARI HEATH MD 11/22/18 0812 PATIENT NAME: DARIUS BEGUM OPERATIVE REPORT DATE OF : 81 REPORT #: [id number] PHYSICIAN: BAKARI HEATH MD PCP: ARISTEO HENDRICKS REPORT IS CONFIDENTIAL AND NOT TO BE RELEASED WITHOUT AUTHORIZATION [facility] [address] [place], [place] [address] Signed anterosuperior escape. During the arthroscopy, we externally rotated and placed him in the apprehension position and he did not dislocate. The glenohumeral surfaces were intact. The labrum was noted to be torn from the 2 o'[address] position all the way around to just posterior to the biceps. Biceps anchor was unstable. The rotator cuff was intact. DESCRIPTION OF OPERATION: Standard anterior portal was made using an outside-in technique. The anterior superior portal was also established. The glenoid rim was then debrided of soft tissue down to a good bony bed. Excellent bleeding was established. Once this was accomplished and the extra frayed labrum was removed, the 1st suture was placed just posterior to the biceps and the anchor was placed again just posterior to the biceps with pulling the labrum up just a little bit. The 2nd anchor was placed right at 1 o'clock position. The 3rd anchor was placed at about the 2:30 position. Once these were established and all sutures were cut, the labrum was quite tight against the bone and stable with motion of the shoulder. The scope was withdrawn. Portals were closed with 3-0 nylon, dressed with ProWick dressing. He tolerated the procedure well. All sponge, needle, and instrument counts were correct. Bakari Heath MD BA/MODL /[id number] Copies: ~ Electronically Signed By: BAKARI HEATH MD 11/22/18 0812 PATIENT NAME: SHYDARIUSSae AMANDA OPERATIVE REPORT DATE OF : 81 REPORT #: [id number] PHYSICIAN: BAKARI HEATH MD PCP: ARISTEO HENDRICKS REPORT IS CONFIDENTIAL AND NOT TO BE RELEASED WITHOUT AUTHORIZATION
== END 2018-11-17 11:20 | disposition home or self-care (01) ==
LOC: DS 05:45 → OPS 05:45 → DS 07:45 → OPS 11:20
PROVIDERS: Specialist
PROC: 0MM14ZZ Reattachment of Right Shoulder Bursa and Ligament, Percutaneous Endoscopic Approach (ICD-10-PCS; principal; 2018-11-17 06:45)
DX: S43.431A Superior glenoid labrum lesion of right shoulder, initial encounter (principal); G47.33 Obstructive sleep apnea (adult) (pediatric)
CPT/HCPCS: 01630; 64415; 76942; C1713; J0330; J0690; J1100; J1885; J2250; J2405; J2704; J2795; J3010; J7120

== ENCOUNTER 2019-02-09 21:14 | Emergency (ER) | payer OTHER ==
[~2019-02-09] VITALS: Ht 180.3 cm; Wt 127.0 kg
[~2019-02-09 21:14] MED LIST changes: +HYDROCODON-ACE1 EA11 PO; +NEURONTIN300 MG PO; +SENNA LAX8.6 MG PO
--- OUTSIDE RECORDS SUMMARY | 2019-02-09 21:16 | XMS ---
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 Details: LWBS CRITERIA MET - PDMP CARE PROVIDERS There are no care providers on record at this time. Ирина has no Care Guidelines for this patient. ERohit VISIT COUNT (12 MO.) 3 [facility] TOTAL 3 NOTE: Visits indicate total known visits. ED/UCC VISIT TRACKING (12 MO.) 02/09/2019 21:14 [facility] [place] TYPE: Emergency COMPLAINT: - CHEST PAIN 06/17/2018 09:20 [facility] [place] TYPE: Emergency COMPLAINT: - COUGH,CONGESTION,L EAR PAIN DIAGNOSES: - Cough - Acute sinusitis, unspecified 04/14/2018 19:53 [facility] [place] TYPE: Emergency COMPLAINT: - L LEG PAIN/INJURY DIAGNOSES: - Procedure and treatment not carried out due to patient leaving prior to being seen by health care provider INPATIENT VISIT TRACKING (12 MO.) No inpatient visits to display in this time frame [email or web address]
--- NOTE | 2019-02-10 13:04 | EKG ---
[facility] [address] [place] [address] Signed Normal sinus rhythm with sinus arrhythmia Normal ECG When compared with ECG of 06-OCT-2017 01:55, No significant change was found Confirmed by NELDA AREVALO MD ([id number]) on 02/10/2019 1:03:50 PM Electronically Signed By: NELDA AREVALO MD 02/10/19 1304 PATIENT NAME: RICKY BEGUM Electrocardiogram DATE OF : 81 PHYSICIAN: NELDA AREVALO MD REPORT #: [id number] REPORT IS CONFIDENTIAL AND NOT TO BE RELEASED WITHOUT AUTHORIZATION
== END 2019-02-09 23:18 | disposition home or self-care (01) ==
LOC: ED 21:14
DX: R07.89 Other chest pain (principal); Z87.891 Personal history of nicotine dependence
CPT/HCPCS: 80053; 84484; 85025; 85379; 93005; 93010; 99285-25

== ENCOUNTER 2022-03-02 12:57 | Emergency (ER) | payer OTHER ==
[~2022-03-02] VITALS: Ht 180.3 cm; Wt 112.5 kg
[2022-03-02] MEDS ORDERED: HYDROCODON-ACE1 EA10 PO (17:16)
[2022-03-02] MEDS ORDERED: ONDANSETRON ODT4 MG PO (17:16)
== END 2022-03-02 17:30 | disposition home or self-care (01) ==
LOC: ED 12:57
DX: N13.2 Hydronephrosis with renal and ureteral calculous obstruction (principal); K21.9 Gastro-esophageal reflux disease without esophagitis; Z87.891 Personal history of nicotine dependence
CPT/HCPCS: 36415; 74176; 80053; 81001; 85025; 96374; 96375; 96376; 99284-25; J1885; J2405